=== PATIENT | male | born 1990 | race Caucasian/White ===

== ENCOUNTER 2023-01-14 00:46 | Emergency (ER) | payer OTHER ==
[~2023-01-14] VITALS: Ht 167.6 cm; Wt 67.1 kg
[2023-01-14 01:01] VITALS: BP 121/67; TEMP 98.1
== END 2023-01-14 01:06 ==
LOC: ER 00:58
DX: T81.30XA Disruption of wound, unspecified, initial encounter (principal); Z02.89 Encounter for other administrative examinations